=== PATIENT | male | born 1940 | race African-American/Black ===

== ENCOUNTER 2020-08-24 19:13 | Inpatient (IN) | payer OTHER ==
[~2020-08-24] VITALS: Ht 180.3 cm; Wt 79.4 kg
[2020-08-24] MEDS ORDERED: DEXAMETHASONE 10 MG/ML VIAL IV ONE (20:00)
[2020-08-24] MEDS ORDERED: ASPIRIN 325MG EC TABLET PO ONE (20:00)
[2020-08-24] MEDS ORDERED: DILTIAZEM HCL 5MG/ML 5ML VIAL IV ONE (20:00)
[2020-08-24 20:31] LABS: BASOPHILS % 0.6 % (0.0-2.0); EOSINOPHILS % 0.1 % (0.0-5.0); HEMATOCRIT. 35.9 % (42.0-52.0); HEMOGLOBIN. 11.1 g/dL (14.0-18.0); LYMPHOCYTES % 19.4 % (20.0-50.0); MEAN CORPUSCULAR HEMOGLOBIN 23.9 pg (28.0-32.0); MEAN CORPUSCULAR VOLUME 77.7 fL (80.0-94.0); MEAN PLATELET VOLUME 9.1 fl (7.4-10.4); MONOCYTES % 7.9 % (2.0-8.0); PLATELET 309 x1000/uL (130-400); RED BLOOD CELL COUNT 4.62 mill/uL (4.7-6.1); RED CELL DISTRIBUTION WIDTH 17.8 % (11.6-14.6)
[2020-08-24 20:41] LABS: INR 1.2; PARTIAL THROMBOPLASTIN TIME 29.1 sec (23.4-31.0); PROTHROMBIN TIME 12.9 sec (9.6-11.0)
[2020-08-24 21:04] LABS: CHLORIDE 107 mEq/L (98-107)
[2020-08-24] MEDS ORDERED: CEFTRIAXONE 1 G PREMIX 50 ML IV ONE (21:15)
[2020-08-24] MEDS ORDERED: AZITHROMYCIN 500 MG in DEXT 5% WATER 250 ML IV ONE (21:15)
[2020-08-25 03:22] LABS: CLARITY URINE CLEAR (CLEAR); COLOR URINE YELLOW (YELLOW); KETONES URINE TRACE (NEGATIVE); LEUKOCYTE ESTERASE URINE NEGATIVE (NEGATIVE); NITRITE URINE NEGATIVE (NEGATIVE); OCCULT BLOOD URINE NEGATIVE (NEGATIVE); PROTEIN URINE TRACE (NEGATIVE); SPECIFIC GRAVITY URINE 1.016 (1.005-1.030)
[2020-08-25 10:00] VITALS: BP 156/128
[2020-08-25] MEDS ORDERED: HYDROCODONE/ACETAMINOPHEN 5/325MG TABLET PO PRN (11:30)
[2020-08-25] MEDS ORDERED: MAGNESIUM/ALUMINUM HYDROXIDE/SIMETHICONE 30ML UDC PO PRN (11:30)
[2020-08-25] MEDS ORDERED: LORAZEPAM 0.5MG TABLET PO PRN (11:30)
[2020-08-25] MEDS ORDERED: LORAZEPAM 2MG/ML CPJ IV PRN (11:30)
[2020-08-25] MEDS ORDERED: CLONIDINE 0.1MG TABLET PO PRN (11:30)
[2020-08-25] MEDS ORDERED: ONDANSETRON HCL 4MG/2ML INJ IV PRN (11:30)
[2020-08-25] MEDS ORDERED: ACETAMINOPHEN 325MG TABLET PO PRN ×2 (11:30)
[2020-08-25] MEDS ORDERED: DOCUSATE SODIUM 100MG CAPSULE PO PRN (11:30)
[2020-08-25] MEDS ORDERED: CEFTRIAXONE 1 G PREMIX 50 ML IV SCH (15:30)
[2020-08-25 16:00] VITALS: BP 103/56
[2020-08-25] MEDS ORDERED: ENOXAPARIN 40MG/0.4ML SYR SUBCUT SCH (16:00)
[2020-08-25] MEDS: DEXAMETHASONE 10 MG/ML VIAL IV SCH (16:36)
[2020-08-25] MEDS ORDERED: AZITHROMYCIN 500 MG in DEXT 5% WATER 250 ML IV SCH (17:00)
[2020-08-25] MEDS: DILTIAZEM HCL 120MG CAPSULE CD 24HR PO SCH (17:30)
[2020-08-25] MEDS ORDERED: CEFTRIAXONE 1,000 MG in DEXTROSE 5% WATER 50 ML IV SCH (18:00)
[2020-08-25 20:00] VITALS: BP 117/64
[2020-08-26] VITALS: BP 121/65
[2020-08-26 04:00] VITALS: BP 118/65
[2020-08-26 08:00] VITALS: BP 145/79
[2020-08-26 08:58] LABS: BASOPHILS % 0.5 % (0.0-2.0); HEMOGLOBIN. 9.8 g/dL (14.0-18.0); LYMPHOCYTES % 20.2 % (20.0-50.0); MEAN CORPUSCULAR HEMOGLOBIN 24.8 pg (28.0-32.0); MEAN CORPUSCULAR VOLUME 75.6 fL (80.0-94.0); MEAN PLATELET VOLUME 8.8 fl (7.4-10.4); MONOCYTES % 6.7 % (2.0-8.0); NEUTROPHILS % 72.6 % (40.0-76.0); PLATELET 235 x1000/uL (130-400); RED BLOOD CELL COUNT 3.97 mill/uL (4.7-6.1); RED CELL DISTRIBUTION WIDTH 17.6 % (11.6-14.6)
[2020-08-26 09:10] LABS: CHLORIDE 100 mEq/L (98-107)
[2020-08-26 09:17] LABS: TOTAL IRON BINDING CAPACITY 150 ug/dL (250-450)
[2020-08-26] MEDS: DEXAMETHASONE 10 MG/ML VIAL IV SCH (09:41)
[2020-08-26] MEDS: DILTIAZEM HCL 120MG CAPSULE CD 24HR PO SCH (09:41)
[2020-08-26] MEDS ORDERED: POTASSIUM CHLORIDE 20MEQ TABLET SR PO NR (11:30)
[2020-08-26 12:00] VITALS: BP 129/75
[2020-08-26] MEDS ORDERED: DILT120C88 PO (13:33)
[2020-08-26] MEDS ORDERED: DILT120C11 MT (13:34)
[2020-08-26 14:56] VITALS: BP 129/75
== END 2020-08-26 16:20 | disposition home or self-care (01) | DRG 189 ==
LOC: ER 19:13 → 7WST 22:16 → ENRESERV 08-25 07:16 → 8WST 08-25 23:07
PROVIDERS: ADMIT Internal Medicine; ATTEND Internal Medicine
PROC: 5A2204Z Restoration of Cardiac Rhythm, Single (ICD-10-PCS; principal; 2020-08-24)
DX: J96.01 Acute respiratory failure with hypoxia (principal); I47.1 Supraventricular tachycardia; E87.2 Acidosis; I50.30 Unspecified diastolic (congestive) heart failure; D50.9 Iron deficiency anemia, unspecified; E03.9 Hypothyroidism, unspecified; R74.01 Elevation of levels of liver transaminase levels; E11.9 Type 2 diabetes mellitus without complications; I11.0 Hypertensive heart disease with heart failure; Z20.822 Contact with and (suspected) exposure to COVID-19; Z79.84 Long term (current) use of oral hypoglycemic drugs
CPT/HCPCS: 36415; 71045; 80048; 80053; 81003; 82728; 83540; 83550; 83605; 83880; 84145; 84443; 84484; 85025; 85379; 93005; 93306; 93970; 96365; 99291; J0456; J0696; J1100; J1650; J3490; J7060; U0003